=== PATIENT | female | born 1950 | race Caucasian/White ===

== ENCOUNTER → 2021-01-12 | Outpatient (CLI) | payer MEDICARE ==
--- NOTE | 2021-01-12 15:58 | Diagnostic Imaging Report ---
CT CHEST SCREENING WO TECHNIQUE: Low-dose unenhanced CT of the chest was performed according to the screening protocol. Coronal MIP and sagittal MPR reformats are created. Automatic exposure controls were utilized to keep dose as low as reasonably achievable. INDICATION: 40 pack year history smoking. Current smoker. COMPARISON: None available. FINDINGS: Pulmonary findings: There are some retained secretions within the upper trachea. No pulmonary mass or consolidation. Mild centrilobular emphysema lung apices. No suspicious pulmonary nodules. Extrapulmonary findings: No pericardial pleural effusion. No axillary or mediastinal lymphadenopathy. Heart is normal in size with moderate to severe coronary artery calcifications. Moderate calcified plaquing throughout the normal caliber aorta. Limited assessment upper abdomen is unremarkable. No concerning focal osseous lesion IMPRESSION: 1. Baseline screening examination is negative for features of clinically active lung cancer. 2. Moderate to severe coronary artery disease. 3. Mild emphysema. Lung-RADS category: 1 - Negative Recommendations: Continued annual screening with low-dose CT in 12 months. Dictated by: Dictated on workstation # [id number]
== END ==
LOC: RAD 14:15
PROVIDERS: ATTEND Psychologist
DX: Z12.2 Encounter for screening for malignant neoplasm of respiratory organs (principal); J43.9 Emphysema, unspecified; I25.10 Atherosclerotic heart disease of native coronary artery without angina pectoris; F17.210 Nicotine dependence, cigarettes, uncomplicated
CPT/HCPCS: 71271